=== PATIENT | male | born 1980 | race Caucasian/White ===

== ENCOUNTER 2019-10-07 21:00 | Emergency (ER) | payer MEDICAID ==
[~2019-10-07] VITALS: Ht 180.3 cm; Wt 72.7 kg
[~2019-10-07 21:00] MED LIST: ACET500T64 PO; AMOX1TAB64 PO; CIPR10DR RIGHT EAR; IBUP-1902 PO; LEVO750T26 PO; OXYC-302 PO
[2019-10-07 22:12] LABS: RAPID INFLUENZA A Negative (Negative); RAPID INFLUENZA B Negative (Negative)
[2019-10-07 22:56] VITALS: BP 111/76
== END 2019-10-07 22:59 | disposition home or self-care (01) ==
LOC: ED 22:43
DX: J15.9 Unspecified bacterial pneumonia (principal); F17.200 Nicotine dependence, unspecified, uncomplicated
CPT/HCPCS: 71046; 87400; 99284